=== PATIENT | female | born 1970 | race Caucasian/White ===

== ENCOUNTER 2020-09-03 16:32 | Emergency (ER) | payer MEDICAID, SELFPAY ==
[~2020-09-03] VITALS: Ht 157.5 cm; Wt 63.5 kg
[2020-09-03 16:50] VITALS: BP_SYST 119
--- NOTE | 2020-09-03 17:15 | NUR ---
Patient to ER bed FA[employer] TR[employer] CHAIR to gown for evaluation. Side rails up. Report given to BIGG JACOBSON .
--- NOTE | 2020-09-03 17:20 | NUR ---
Patient presented to ER C/O body aches. Patient ambulatory to ER, afebrile, skin pink and warm, respirations equal and unlabored, nausea, denies V/D, pain 10/10. Patient states she Is COVID positive, tested on 09/01/2019, patient states she has intermittent fevers with bodyaches x2 days. Patient reports daughter and COVID positive also
--- NOTE | 2020-09-03 17:36 | NUR ---
ER Dr. Xavier at bedside examining patient.
[2020-09-03] MEDS ORDERED: KETOROLAC TROMETHAMINE 60 MG/2 ML VIAL IM ONE ×2 (17:45→17:49)
--- NOTE | 2020-09-03 18:23 | NUR ---
Patient given written and verbal discharge instructions and verbalizes understanding. ER MD discussed with patient the results and treatment provided. Patient in stable condition. ID arm band removed. Rx of NORCO & ZOFRANgiven. Patient educated on pain management and to follow up with PMD. Pain Scale 3/10. Opportunity for questions provided and answered. Medication side effect fact sheet provided.
[2020-09-03 18:24] VITALS: BP_SYST 118
== END 2020-09-03 18:24 | disposition home or self-care (01) ==
LOC: SED 16:32
DX: U07.1 COVID-19 (principal); M79.18 Myalgia, other site
CPT/HCPCS: 96374; 99283; J1885